=== PATIENT | female | born 1990 | race African-American/Black ===

== ENCOUNTER 2016-11-13 09:27 | Emergency (ER) | payer OTHER ==
[2016-11-13 09:36] VITALS: BP 135/76; PULSE 64; TEMP 97.4; BMI 28.3
--- NOTE | 2016-11-13 10:38 | PDOC ---
History of Present Illness - General Chief Complaint: Ear Problem Stated Complaint: FOREIGN BODY IN EAR Time Seen by Provider: 11/13/16 10:23 History Source: Patient Exam Limitations: No Limitations - History of Present Illness Initial Comments: 11/13/16 10:35 Chief complaint: Piece of tissue stuck in right ear, sore throat History of present illness: Patient is a 26 year old female with a history of asthma here today complaining of getting a piece of tissue stuck in her right ear this morning. Patient also reports having a sore throat today. Patient denies any cough, shortness of breath or difficulty swallowing. Patient reports that her nephew was diagnosed with the flu yesterday and she had been around him recently in her car driving him around a couple of days ago. Patient denies any fever or any chills presently. Timing/Duration: constant (right ear ) Severity: mild Associated Symptoms: reports: other (sore throat, tissue stuck in rt. ear ) Past History - Past Medical History Allergies/Adverse Reactions: Allergies Allergy/AdvReac Type Severity Reaction Status Date / Time No Known Allergies Allergy Verified 11/13/16 09:33 Home Medications: Ambulatory Orders Oseltamivir Phosphate [Tamiflu -] 75 mg PO BID #10 capsule MDD 2 11/13/16 Asthma: Yes - Surgical History Abdominal Surgery: No - Psycho/Social/Smoking Cessation Hx Anxiety: No Suicidal Ideation: No Smoking History: Current some day smoker Have you smoked in the past 12 months: Yes Number of Cigarettes Smoked Daily: 5 Cigars Per Day: 1 Information on smoking cessation initiated: Yes 'Breaking Loose' booklet given: 11/13/16 Hx Alcohol Use: No Drug/Substance Use Hx: No Substance Use Type: None Review of Systems - Review of Systems Able to Perform ROS?: Yes Constitutional: No: Symptoms Reported HEENTM: Yes: Ear Pain (rt. piece of tissue stuck in ear ), Throat Pain Respiratory: No: Symptoms reported Cardiac (ROS): No: Symptoms Reported ABD/GI: No: Symptoms Reported : No: Symptoms Reported Musculoskeletal: No: Symptoms Reported Integumentary: No: Symptoms Reported Neurological: No: Symptoms reported *Physical Exam - Vital Signs Last Vital Signs Temp Pulse Resp BP Pulse Ox 97.4 F L 64 18 135/76 100 11/13/16 09:33 11/13/16 09:33 11/13/16 09:33 11/13/16 09:33 11/13/16 09:33 - Physical Exam General Appearance: Yes: Appropriately Dressed HEENT: positive: TMs Normal (left, right after tissue removal ), Pharyngeal Erythema. negative: Tonsillar Exudate, Tonsillar Erythema, Nasal Congestion, Rhinorrhea, Hearing Decreased, Hearing Grossly Normal, TM Bulging, TM Dull, TM Erythema Neck: negative: Lymphadenopathy (R), Lymphadenopathy (L) Respiratory/Chest: positive: Lungs Clear, Normal Breath Sounds. negative: Chest Tender, Respiratory Distress Cardiovascular: positive: Regular Rhythm, Regular Rate, S1, S2 Integumentary: positive: Normal Color Neurologic: positive: Alert, Responsive Medical Decision Making - Medical Decision Making 11/13/16 10:36 Patient is a 26 year old female with a history of asthma here today complaining of getting a piece of tissue stuck in her right ear this morning. Patient also reports having a sore throat today. Patient denies any cough, shortness of breath or difficulty swallowing. Patient reports that her nephew was diagnosed with the flu yesterday and she had been around him recently in her car driving him around a couple of days ago. Patient denies any fever or any chills presently. Denies any chance of being . Right ear piece of tissue stuck in it removed with alligator forceps no perforation of TM TM pearly kelly Exposure to influenza Plan: Tamiflu 75 mg twice a day 5 days *DC/Admit/Observation/Transfer Diagnosis at time of Disposition: Exposure to influenza Foreign body of ear, right Qualifiers: Encounter type: initial encounter Qualified Code(s): T16.1XXA - Foreign body in right ear, initial encounter - Discharge Dispostion Disposition: HOME Condition at time of disposition: Stable - Patient Instructions Additional Instructions: Avoid putting tissue in your ears Drink a lot of fluids and rest Return to emergency room if any difficulty breathing or swallowing Take ibuprofen or acetaminophen as needed as directed by armored cable machine operator for fever or pain Follow-up with your primary care provider within the next few days And patient voiced understanding of discharge instructions and all questions were answered
== END 2016-11-13 10:42 | disposition home or self-care (01) ==
LOC: JERFT 09:27
DX: Z20.828 Contact with and (suspected) exposure to other viral communicable diseases (principal); T16.1XXA Foreign body in right ear, initial encounter; J45.909 Unspecified asthma, uncomplicated; X58.XXXA Exposure to other specified factors, initial encounter; Y93.89 Activity, other specified; F17.210 Nicotine dependence, cigarettes, uncomplicated
CPT/HCPCS: 99281-25